=== PATIENT | female | born 1995 | race Caucasian/White ===

== ENCOUNTER 2022-09-11 12:31 | Emergency (ER) | payer OTHER, MEDICAID, SELFPAY ==
[2022-09-11 12:32] VITALS: BP 148/85; PULSE 78; RESP 16; TEMP 36.6; O2SAT 100; BMI 38.9
[2022-09-11 13:12] LABS: Bacteria 0 SEEN /hpf (None Seen); Mucous, Urine 0 SEEN /hpf (<or=2+); Red Blood Cells-Urine 0 SEEN /hpf (0-5); Squamous Epithelial Cells - UA 0 SEEN /hpf (5-10); White Blood Cells 0 SEEN /hpf (0-5)
[2022-09-11 13:14] LABS: Color, Urine Yellow (Yellow); Glucose, Dipstick Normal (Normal); Ketone-Dipstick Negative (Negative); Leukocyte Esterase-Dipstick Negative /ul (Negative); Nitrite-Dipstick Negative (Negative); Occult Blood-Urine Negative /ul (Negative); Protein-Dipstick Negative (Negative); Specific Gravity, Urine 1.015 (1.002-1.030); Urine Bilirubin Dipstick Negative (Negative); Urine Clarity Cloudy (Clear); Urine Urobilinogen Normal (Normal)
--- NOTE | 2022-09-11 13:15 | ED.VIS.FEGU ---
HPI <IRAM Fallon - Last Filed: 09/11/22 13:54> HPI - Female History of Present Illness Chief Complaint: Narrative Narrative: Today with lower back pain that she has had since last night. She is G1, P0 and is 18 weeks along. She has had care up to this point and has not had any difficulties with her . She denies any injury to her back, heavy lifting, fever, abdominal pain, urinary symptoms, pelvic cramping, and vaginal bleeding. She denies any radiation of pain/numbness into her extremities, saddle paresthesia, bowel bladder incontinence. PFSH <IRAM Fallon - Last Filed: 09/11/22 13:54> [facility] Home Medications amlodipine 10 mg tablet 10 mg PO DAILY 09/11/22 [History Last Taken Unknown] metoprolol succinate 25 mg tablet,extended release 24 hr 25 mg PO DAILY 09/11/22 [History Last Taken Unknown] Allergy/AdvReac Type Severity Reaction Status Date / Time amoxicillin Allergy Hives Verified 09/11/22 12:32 Penicillins [PCN] Allergy Hives Verified 09/11/22 12:32 Family History Other Breast cancer Diabetes Heart disease Hypertension Social History Smoking Status: Never smoker ROS <IRAM Fallon - Last Filed: 09/11/22 13:54> ROS ED Constitutional Constitutional ED: Denies chills, fever(s) or sweats Cardiovascular Cardiovascular: Denies chest pain or palpitations Respiratory/Chest Respiratory/Chest: Denies cough or dyspnea Gastrointestinal Gastrointestinal: Denies abdominal pain, nausea or vomiting Genitourinary Genitourinary ED: Denies dysuria, hematuria or urinary urgency Musculoskeletal Musculoskeletal: Reports back pain; Denies neck pain Integumentary Denies abscess, Abrasions or rash Neurologic Neurologic: Denies paresthesias or weakness Psychiatric Psychiatric: Denies anxiety, depression, suicidal ideation or suicidal thoughts EXAM <IRAM Fallon - Last Filed: 09/11/22 13:54> Physical Exam Const Vital Signs: 09/11/22 12:32 09/11/22 13:32 Temperature 97.8 F Temperature Source Temporal Pulse Rate 78 Respiratory Rate 16 Blood Pressure 148/85 H Blood Pressure Mean 106 Pulse Ox 100 99 Oxygen Delivery Method Room Air Positive well nourished, well developed and no apparent distress General Appearance ED: well developed HEENT Reports normocephalic and head/scalp atraumatic Mouth ED: Yes moist mucous membranes normal Eyes PERRL and EOMs intact bilaterally Neck full ROM and supple Chest Wall inspection of chest normal Resp normal respiratory effort and clear to auscultation bilaterally Cardio regular rate and regular rhythm GI soft to palpation, non-tender, non-distended and no masses Back/Spine normal ROM and normal to inspection Back/Spine Narrative: Lumbar paraspinal tenderness bilaterally. No midline tenderness, no step-off Cervical Spine: Negative for cervical spine tenderness Thoracic Spine / Upper Back: Negative for thoracic spinal tenderness Lumbar Spine / Lower Back: Negative for lumbar spinal tenderness Extremity normal to inspection and full ROM Neuro oriented x3, CN's II-XII intact bilaterally, moves all extremities, no focal motor deficits and no sensory deficits noted Sensorium / Orientation: awake and alert Psych mental status grossly normal and thought process normal Skin no rashes or lesions noted and no wounds <Dr. Brad Ko MD - Last Filed: 09/11/22 13:35> Physical Exam Const Vital Signs: 09/11/22 12:32 09/11/22 13:32 Temperature 97.8 F Temperature Source Temporal Pulse Rate 78 Respiratory Rate 16 Blood Pressure 148/85 H Blood Pressure Mean 106 Pulse Ox 100 99 Oxygen Delivery Method Room Air MDM <IRAM Fallon - Last Filed: 09/11/22 13:54> [facility] Narrative Medical decision making narrative: Patient presenting with lower back pain that she has had since last night. She is well-appearing and in no acute distress. She has had no injury to her back. Negative straight leg test, no midline tenderness, exam is consistent with lumbar paraspinal tenderness. UA obtained and is negative for any infection. Patient has been taking Tylenol for her pain, she can continue this. She will be discharged home in stable condition and is comfortable with plan. I have personally performed a face to face assessment of the patient and have reviewed the STACEY Note. I performed a substantive portion of the visit including all aspects of the following. My lucas findings include: History is 26-year-old female 18 weeks . Normal so far. No significant nausea or vomiting. No bleeding or discharge. No dysuria. Yesterday started having lower back pain. No falls or trauma. No weakness or numbness. No radiation to her legs. No fever. No back history of surgery. Exam is [[id number] female no acute distress. Vital signs are stable afebrile. H EENT exam unremarkable. Lungs clear to auscultation. Heart regular rhythm. Abdomen soft nontender. Normal bowel sounds no peritoneal signs. Moving all 4 extremities. Neurovascular intact. Normal motor strength and sensation. Able to stand. Back minimal reproducible lower lumbar and paralumbar tenderness. No SI joint tenderness. No radiation to her legs. Negative straight leg raise. Both lower extremities have normal strength and sensation. No cauda equina. ] Medical Decision Making [exam consistent with musculoskeletal back pain. UA was done and is negative. She will be discharged home. Tylenol for pain.] Other additions or changes: [None] Lab Data Attestation: I reviewed the patient's lab results. Labs: Laboratory Results - last 24 hr 09/11/22 13:06 Urine Color Yellow Urine Clarity Cloudy Urine pH 7.0 Ur Specific [place] 1.015 Urine Protein Negative Urine Glucose (UA) Normal Urine Ketones Negative Urine Occult Blood Negative Urine Nitrite Negative Urine Bilirubin Negative Urine Urobilinogen Normal Ur Leukocyte Esterase Negative Urine RBC 0 SEEN Urine WBC 0 SEEN Ur Squamous Epith Cells 0 SEEN Amorphous Sediment 1+ Urine Bacteria 0 SEEN Urine Mucus 0 SEEN <Dr. Brad Ko MD - Last Filed: 09/11/22 13:35> [facility] Narrative Medical decision making narrative: I have personally performed a face to face assessment of the patient and have reviewed the STACEY Note. I performed a substantive portion of the visit including all aspects of the following. My lucas findings include: History is 26-year-old female 18 weeks . Normal so far. No significant nausea or vomiting. No bleeding or discharge. No dysuria. Yesterday started having lower back pain. No falls or trauma. No weakness or numbness. No radiation to her legs. No fever. No back history of surgery. Exam is [[id number] female no acute distress. Vital signs are stable afebrile. H EENT exam unremarkable. Lungs clear to auscultation. Heart regular rhythm. Abdomen soft nontender. Normal bowel sounds no peritoneal signs. Moving all 4 extremities. Neurovascular intact. Normal motor strength and sensation. Able to stand. Back minimal reproducible lower lumbar and paralumbar tenderness. No SI joint tenderness. No radiation to her legs. Negative straight leg raise. Both lower extremities have normal strength and sensation. No cauda equina. ] Medical Decision Making [exam consistent with musculoskeletal back pain. UA was done and is negative. She will be discharged home. Tylenol for pain.] Other additions or changes: [None] Lab Data Labs: Laboratory Results - last 24 hr 09/11/22 13:06 Urine Color Yellow Urine Clarity Cloudy Urine pH 7.0 Ur Specific [place] 1.015 Urine Protein Negative Urine Glucose (UA) Normal Urine Ketones Negative Urine Occult Blood Negative Urine Nitrite Negative Urine Bilirubin Negative Urine Urobilinogen Normal Ur Leukocyte Esterase Negative Urine RBC 0 SEEN Urine WBC 0 SEEN Ur Squamous Epith Cells 0 SEEN Amorphous Sediment 1+ Urine Bacteria 0 SEEN Urine Mucus 0 SEEN Discharge Plan Triage Chief Complaint: ED Midlevel Provider: Rhona Dee ED Provider: Brad Ko Dx/Rx/DC Orders Clinical Impression: , Lower back pain Prescriptions: No Action amlodipine 10 mg tablet 10 mg PO DAILY Label Comments: TAKE 1 TABLET BY MOUTH ONCE DAILY. FOR HYPERTENSION metoprolol succinate 25 mg tablet extended release 24 hr 25 mg PO DAILY Label Comments: TAKE 1 TABLET BY MOUTH EVERY DAY Stand Alone Forms: ED Work / School Excuse Primary Care Provider: Macarena Calles Referrals: Macarena Calles P[facility] [Primary Care Provider] - 5-7 Days Activity Restrictions/Additional Instructions: Follow-up with your OB as needed. Return for any worsening of symptoms Disposition Disposition: Home, Self Care Discharge Date/Time: 09/11/22 13:41
[2022-09-11 13:19] LABS: Amorphous Sediment 1+
[2022-09-11 13:32] VITALS: O2SAT 99
== END 2022-09-11 13:41 | disposition home or self-care (01) ==
PROVIDERS: Physician Assistant; Emergency Provider Emergency Medicine; PCP Family Medicine; Visit Provider Emergency Medicine
DX: O99.891 Other specified diseases and conditions complicating pregnancy (principal); M54.50 Low back pain, unspecified; Z3A.18 18 weeks gestation of pregnancy
CPT/HCPCS: 81001; 99282

== ENCOUNTER 2023-01-24 01:33 | Inpatient (IN) | payer OTHER, SELFPAY ==
[2023-01-23 23:42] VITALS: BMI 42.2
[2023-01-23 23:48] VITALS: BP 149/89; PULSE 91; TEMP 36.7
[2023-01-24] VITALS (41 sets, daily range): BP systolic 131–169; BP diastolic 76–96; PULSE 69–86; RESP 15–16; TEMP 36.4–37.1; O2SAT 84–100
[2023-01-24 00:43] LABS: Hematocrit 35.2 % (37-47); Hemoglobin 10.9 g/dL (12.0-15.0); Mean Corpuscular Hgb 27.9 pg (27.0-32.0); Mean Corpuscular Volume 90.3 fL (81-99); Mean Platelet Vol. 10.3 fl (6.2-12.0); Platelet Count 196 K/mm3 (150-450); RBC Distribution Width CV 13.6 % (11.6-14.6); RBC Distribution Width SD 44.5 fl (35.1-43.9); White Blood Count 12.4 K/mm3 (4.4-11.0)
[2023-01-24] MEDS: Acetaminophen 325 MG Tablet 650 MG PO (00:50)
[2023-01-24 00:59] LABS: Protein, Urine (Random) 57.2 mg/dL (<11.9); Protein:Creat Ratio 308 mg/g CRE (0-200)
[2023-01-24 01:12] LABS: AST(SGOT) 22 U/L (15-37); Alanine Aminotransfer ALT/SGPT 17 U/L (13-56); Creatinine, Serum 0.57 mg/dL (0.55-1.02); EST Glomerular Filtration Rate 134 mL/min (>60); Est Glom Filt Rate - Afr Amer 162 mL/min (>60); Estimated Creatinine Clearance 137.56 ml/min; Uric Acid 4.7 mg/dL (2.6-6.0)
--- NOTE | 2023-01-24 01:51 | EKG12_ITS ---
Test Reason : CHEST TIGHTNESS Blood Pressure : / mmHG Vent. Rate : 090 BPM Atrial Rate : 090 BPM P-R Int : 162 ms QRS Dur : 082 ms QT Int : 372 ms P-R-T Axes : 034 -05 026 degrees QTc Int : 455 ms Normal sinus rhythm Normal ECG No previous ECGs available Confirmed by GABRIELLA PINEDA ([id number]), visual effects editor SONU CHOUDUHRY ([id number]) on 02/02/2023 9:42:43 AM Referred By: Missy Hastings Confirmed By:GABRIELLA PINEDA
--- NOTE | 2023-01-24 01:51 | RAD_ITS ---
EXAM: XR CHEST, 1 VIEW CLINICAL INDICATION: chest tightness, cough chest tightness, cough TECHNIQUE: Frontal view of the chest. COMPARISON: No relevant prior studies available. FINDINGS: LUNGS AND PLEURAL SPACES: Lungs are mildly underexpanded. There is no demonstrated pulmonary infiltrate. No pneumothorax. No effusion. HEART: Unremarkable. Cardiac silhouette not enlarged. MEDIASTINUM: Central airways and mediastinal contour are unremarkable. BONES/JOINTS: Unremarkable. SOFT TISSUES: Unremarkable. RAD/Chest 1 View (Portable) IMPRESSION: No acute findings in the chest. Electronically Signed: Ga Hall MD at 3:09 EDT Reading Location ID and State: [facility] / [place] , Service support ,
[2023-01-24] MEDS: Lactated Ringers 1,000 ML 50 ML IV ×2 (02:07→23:47)
[2023-01-24 02:32] LABS: Syphilis Antibodies Non-reactive
--- NOTE | 2023-01-24 02:44 | PCM.HP.OB ---
HPI - General General Date of Admission: 01/24/23 Date of Service: 01/24/23 Chief Complaint: ZAMORA HPI Narrative JOSE REBOLLEDO, is a 27 F 0 at 37 weeks and 0 days with history of chronic hypertension on blood pressure medication who presents with a new onset headache. She rates the headache 4 out of 10 and it is occipital in location. ZAMORA unchanged with Tylenol but she reports it as mild, and reports a h/o ZAMORA's. She denies visual changes, right upper quadrant pain, nausea, vomiting, malaise. She reports she checked her blood pressure at work and it was elevated in the 160s. The elevated blood pressure at work and the headache is what prompted her to present to labor and delivery. No contractions, bleeding, leaking of fluid. Good movement. She also reports over the last several weeks that she has had chest tightness and a cough that is intermittent. Attributes this to history of reactive airway disease. She denies any chest tightness or cough at this time. She reports some shortness of breath on exertion. Denies orthopnea. Has noticed lower extremity swelling. PFSH PFSH Home Medications amlodipine 10 mg tablet 10 mg PO DAILY 09/11/22 [History Last Taken 01/23/23] aspirin 81 mg capsule 162 mg PO DAILY 01/23/23 [History Last Taken 01/23/23] vit no.95-ferrous fumarate 28 mg-folic acid 800 mcg tablet () 1 tab PO DAILY 01/23/23 [History Last Taken 01/23/23] Allergy/AdvReac Type Severity Reaction Status Date / Time amoxicillin Allergy Hives Verified 09/11/22 12:32 Penicillins [PCN] Allergy Hives Verified 09/11/22 12:32 Family History Other Breast cancer Diabetes Heart disease Hypertension Social History Smoking Status: Never smoker NST FHR Rate Baby A Baseline: 140 Variability:: Moderate Accelerations:: 15 x 15 Decelerations:: None FHR Category:: Category I Uterine Activity:: Irregular ctx's Vital Signs Vital Signs Vital Signs: 01/23/23 23:48 01/23/23 23:48 01/24/23 00:03 Temperature Temperature Source Pulse Rate 91 Blood Pressure 149/89 H 149/85 H BP Systolic 149 149 BP Diastolic 89 85 01/24/23 00:03 01/24/23 00:18 01/24/23 00:18 Temperature Temperature Source Pulse Rate 78 80 Blood Pressure 140/82 H BP Systolic 140 BP Diastolic 82 01/24/23 00:33 01/24/23 00:33 01/23/23 23:48 Temperature Temperature Source Temporal Pulse Rate 81 Blood Pressure 145/88 H BP Systolic 145 BP Diastolic 88 01/23/23 23:48 01/24/23 00:48 01/24/23 00:48 Temperature 98.1 F Temperature Source Pulse Rate 78 Blood Pressure 143/90 H BP Systolic 143 BP Diastolic 90 01/24/23 01:03 01/24/23 01:03 01/24/23 01:19 Temperature Temperature Source Pulse Rate 80 Blood Pressure 133/96 H 147/86 H BP Systolic 133 147 BP Diastolic 96 86 01/24/23 01:19 01/24/23 01:35 01/24/23 01:35 Temperature Temperature Source Pulse Rate 78 75 Blood Pressure 150/83 H BP Systolic 150 BP Diastolic 83 Weight Weight: 261 lb 7.492 oz Body Mass Index (BMI) 42.2 Physical Exam Const alert and no apparent distress General Appearance: comfortable HEENT normocephalic Resp normal respiratory effort, normal air movement and clear to auscultation bilaterally Effort and Inspection: able to speak in complete sentences Auscultation: clear to auscultation bilaterally; Negative for crackles or wheezes Cardio regular rate and regular rhythm GI soft to palpation and non-tender Extremity Extremity Narrative: 1+ pitting edema bilaterally Neuro Neuro Narrative: No hyper reflexia Labs Labs Labs: Blood Type Pending Antibody Screen NEGATIVE Hct 35.2 % (37-47) L Hgb 10.9 g/dL (12.0-15.0) L Syphilis Total Ab Non-reactive Assessment & Plan (1) 37 weeks gestation of : PLAN: - Admit for induction of labor and routine intrapartum care - Cvx closed. Will start with Cytotec - Epidural for pain control - GBS negative - Expected EFW < 4500 g and pelvis adequate - Anticipate vaginal delivery (2) Chronic hypertension: PLAN: - Cont Amlodipine - BP's mild range - P/c ratio elevated (3) Chronic hypertension with superimposed preeclampsia: PLAN: - BP's mild range but higher than what they typically are in office - P/c ratio elevated - ZAMORA mild. Discussed with pt if worsened ZAMORA or severe range BP's will start mag gtt for seizure prophylaxis (4) Obesity affecting : (5) History of palpitations: PLAN: - Pt had EKG with PCP prior to showing possible atrial enlargement - MFM consultation in the and Echo was ordered. Echo completed and normal - EKG on admission normal sinus rhythm - CXR given chest tightness and cough
[2023-01-24] MEDS: miSOPROStol 25 MCG TABLET PO ×3 (04:40→12:55)
[2023-01-24] MEDS: amLODIPine 10 MG Tablet PO (15:11)
--- NOTE | 2023-01-24 16:19 | PCM.PN.OB ---
Subjective Subjective Pt is doing well. She reports an off-and-on mild headache. The headache is improved from admission. The headache is still in the occipital location and possibly a tension headache. No visual changes. No right upper quadrant pain, nausea, vomiting. She is feeling some cramping from the Cytotec. Objective Data Objective Data Vital Signs: Vital Signs Temp Pulse BP Pulse Ox 97.6 F L 76 134/81 H 99 01/24/23 12:57 01/24/23 16:02 01/24/23 16:02 01/24/23 06:02 Weight: 261 lb 7.492 oz Body Mass Index (BMI) 42.2 Intake & Output: Intake and Output for Last 24 Hours 01/22/23 01/23/23 01/24/23 23:59 23:59 23:59 Intake Total 6.67 / 6.67 Output Total 400 / 400 Balance -393.33 / -393.33 Lab / Micro Data 01/24/23 00:30 01/24/23 00:30 Labs: Laboratory Results - last 24 hr 01/24/23 00:30: WBC 12.4 H, RBC 3.90 L, Hgb 10.9 L, Hct 35.2 L, MCV 90.3, MCH 27.9, MCHC 31.0 L, RDW Std Deviation 44.5 H, RDW Coeff of [place] 13.6, Plt Count 196, MPV 10.3, Creatinine 0.57, Estim Creat Clear Calc 137.56, Est GFR (MDRD) Af Amer 162, Est GFR (MDRD) Non-Af 134, Uric Acid 4.7, AST 22, ALT 17, U Random Total Protein 57.2 H, Urine Creatinine 186.00, Protein/Creatinin Ratio 308 H, Syphilis Total Ab Non-reactive, Antibody Screen NEGATIVE Radiography Diagnostic Testing: Radiology Impression Chest X-Ray 01/24/23 01:51 IMPRESSION: No acute findings in the chest. Electronically Signed: Ga Hall MD at 3:09 EDT Reading Location ID and State: [facility] / [place] , Service support , Assessment & Plan (1) 37 weeks gestation of : PLAN: Patient has received 2 doses of Cytotec. Cervix 1/thick/-3, vertex. Intracervical Mejia placed in usual fashion and balloon filled with 30 cc of saline. Patient tolerated procedure well. Category [address] a third dose of Cytotec. Once intracervical Mejia is out, and we are 4 hours from Cytotec, to start Pitocin per protocol. Pressures remain normal to mild range. Patient's headache has improved. No indication for magnesium for seizure prophylaxis at this time. Continue to closely monitor. (2) History of palpitations: (3) Obesity affecting : (4) Chronic hypertension with superimposed preeclampsia:
[2023-01-24] MEDS: 0.9% Normal Saline Single 100 ML IV.SOLN. INTRA-UTER (16:26)
--- NOTE | 2023-01-24 17:27 | PCM.PN.BLA ---
Progress Note Pt feeling ctx's. At bedside with RN to check cervix. Assessment & Plan Assessment/Plan (1) History of palpitations: (2) Obesity affecting : (3) Chronic hypertension with superimposed preeclampsia: (4) 37 weeks gestation of : PLAN: Intracervical serna bulb out. Cvx /-2, vertex. Start pitocin per protocol. Pt plans on epidural.
[2023-01-24] MEDS: Oxytocin 15 Units/NS 250ml 15 UNITS/250 ML IV.SOLN 2 UNITS IV (17:39)
--- NOTE | 2023-01-24 19:48 | NURSING ---
MOB and FOB verbalized they would like baby to receive the hepatitis b vaccine.
--- NOTE | 2023-01-24 21:44 | PCM.PN.BLA ---
Progress Note At bedside to check on pt. Getting uncomfortable with ctx's. Assessment & Plan Assessment/Plan (1) History of palpitations: (2) Obesity affecting : (3) Chronic hypertension with superimposed preeclampsia: (4) 37 weeks gestation of : PLAN: Plan Cvx /-1, vertex and head well applied. AROM performed in usual fashion with return of moderate clear fluid. Category 1 tracing. Cont pit gtt. ZAMORA has improved. No pre e symptoms at this time. BP's remain normal to mild.
[2023-01-24] MEDS: Magnesium Sulfate 4gm/100mL 4 GM/100 ML IV.SOLN. IV (22:57)
[2023-01-24] MEDS: Magnesium Sulfate 20 GM/500 ML BAG IV (23:17)
[2023-01-24] MEDS: LACTATED RINGERS 500 ML 999 ML IV (23:58)
[2023-01-25] VITALS (87 sets, daily range): BP systolic 123–166; BP diastolic 66–98; PULSE 73–245; RESP 14–16; TEMP 36.4–37.5; O2SAT 74–100
[2023-01-25] MEDS: fentaNYL-bupivacaine (epidural) 100 ML BAG EPIDURAL ×4 (00:25→14:43)
--- NOTE | 2023-01-25 00:35 | NURSING ---
Please look at QS Charting for blood pressure for magnesium checks
--- NOTE | 2023-01-25 02:18 | NURSING ---
see QS for vital signs
--- NOTE | 2023-01-25 03:17 | NURSING ---
see QS for vital signs
--- NOTE | 2023-01-25 04:04 | NURSING ---
see QS for vitals
--- NOTE | 2023-01-25 06:00 | NURSING ---
see QS for vitals
--- NOTE | 2023-01-25 07:06 | NURSING ---
see QS for vitals
[2023-01-25] MEDS: Acetaminophen 500 MG Tablet PO (07:56)
--- NOTE | 2023-01-25 08:33 | PCM.PN.OB ---
Subjective Subjective Patient seen at bedside. Comfortable with epidural. Currently has headache. Objective Data Objective Data Vital Signs: Vital Signs Temp Pulse Resp BP Pulse Ox O2 Del Method 98.1 F 88 16 151/87 H 99 Room Air 01/25/23 08:00 01/25/23 08:00 01/25/23 08:00 01/25/23 07:58 01/25/23 07:03 01/25/23 08:00 Oxygen Delivery Method Room Air Weight: 261 lb 7.492 oz Body Mass Index (BMI) 42.2 Intake & Output: Intake and Output for Last 24 Hours 01/23/23 01/24/23 01/25/23 23:59 23:59 23:59 Intake Total 1079.27 / 1079.27 804.63 / 804.63 Output Total 725 / 725 969 / 969 Balance 354.27 / 354.27 -164.37 / -164.37 Lab / Micro Data 01/24/23 00:30 01/24/23 00:30 ROS Eyes Eyes: Denies blurry vision, change in vision or spots in vision ENT HEENT: Reports headache(s); Denies dizziness Cardiovascular Cardiovascular: Denies abdominal pain, chest pain or dyspnea Respiratory/Chest Respiratory/Chest: Denies cough, dyspnea, shortness of breath at rest or shortness of breath with exertion Gastrointestinal Gastrointestinal: Denies abdominal pain, diarrhea or vomiting Genitourinary Genitourinary: Denies change in urinary stream, difficulty urinating or dysuria Musculoskeletal Musculoskeletal: Reports none Integumentary Integumentary: Denies rash Neurologic Neurologic: Denies dizziness, headache(s), memory loss or weakness Physical Exam Narrative Dressing is dry and intact Const alert and no apparent distress General Appearance: cooperative and comfortable Exam Limitations: no limitations HEENT normocephalic Eyes General Eye: normal appearance of both eyes Neck full ROM General: normal visual inspection Chest Chest: symmetrical chest wall rise Resp normal respiratory effort and normal air movement Effort and Inspection: symmetric chest movement Auscultation: clear to auscultation bilaterally Cardio regular rate and regular rhythm GI normal to inspection, nondistended, normoactive bowel sounds Back/Spine normal ROM Extremity full ROM and no calf tenderness General Extremity: normal exam except as noted Skin no rashes or lesions noted Neuro CN's II-XII intact bilaterally Psych mental status grossly normal Assessment & Plan (1) History of palpitations: (2) Obesity affecting : (3) Chronic hypertension with superimposed preeclampsia: (4) Chronic hypertension: (5) Asthma: COMMENT: reactive airway disorder PLAN: Plan CE- /-1 IUPC and FSE placed without difficulty Cat. 2 tracing with early decelerations- overall reassuring Magnesium Sulfide at 2 gm/hr- continue present management Last BP- 151/87 Dr. Issa updated and is assuming management of patient
[2023-01-25] MEDS: Magnesium Sulfate 20 GM/500 ML BAG IV ×2 (09:18→19:17)
[2023-01-25] MEDS: Oxytocin 15 Units/NS 250ml 15 UNITS/250 ML IV.SOLN 20 UNITS IV (12:15)
[2023-01-25] MEDS: Ondansetron 4 MG/2 ML Vial IV (13:51)
[2023-01-25] MEDS: Oxytocin 15 Units/NS 250ml 15 UNITS/250 ML IV.SOLN 83 UNITS IV (16:17)
[2023-01-25] MEDS: miSOPROStol 200 MCG Tablet 1000 MCG RC (16:21)
[2023-01-25] MEDS: Methylergonovine 0.2 MG/ML Ampul IM (16:29)
[2023-01-25] MEDS: HYDROmorphone 1 MG/ML Syringe IV (16:30)
[2023-01-25] MEDS: Carboprost Tromethamine 250 MCG/ML Ampul IM (16:47)
--- NOTE | 2023-01-25 16:51 | EX.PCM.OBRPT ---
Assessment & Plan (1) 37 weeks gestation of : (2) (spontaneous vaginal delivery): (3) Atony of uterus without hemorrhage, delivered: (4) Chronic hypertension with superimposed preeclampsia: Maternal Data Information Final SUSHMA: 02/14/23 Gestational age: 37 1/7 Vaginal Delivery Maternal Presentation Maternal Presentation: Medically Indicated Induction Type of Induction: Pitocin and Mejia Bulb Medical Reason for Induction: Preeclampsia, eclampsia Operative Information Date of Procedure: 01/25/23 Pre-Operative Diagnosis: labor Post-Operative Diagnosis: same Surgery / Procedure Performed: Spontaneous Vaginal Delivery Type of Anesthesia: None Special Medications: dilauded IVx1 for pain control Drain: Mejia to straight drain Estimated Blood Loss: 800 Time of Delivery: 16:14 Findings Description of Procedure: A vigorous [female] was delivered [HANK] over an intact perineum. The remainder the was delivered with maternal pushing and gentle traction only in less than 15 seconds. The Pitocin infusion was initiated for active management of the third stage. The cord was clamped and cut after cord pulsations ceased. The was attended to by the waiting nursing staff. The placenta was delivered spontaneously and intact. The cervix and vagina were intact. It was immediately noted that there was uterine atony. Fundal massage was given and an expiration of the uterus was performed. A brief ultrasound was done to confirm no retained intrauterine products. Patient was given IV bolus Pitocin and Hemabate IM x1. I continued fundal massage and she continued to bleed. We asked for the hemorrhage cart and a second IV line to be initiated. I then asked for Cytotec and 1000 mcg was placed rectally by me. I continued fundal massage. The uterus was still somewhat boggy but shrinking down. She was then given Methergine IM x1 for the atony, followed by 1 mg of Dilaudid IV for pain control. The first-degree vaginal laceration was oversewn with a 3-0 Vicryl repeat suture in a single [id number] fashion. Sponge and needle counts were correct. A vaginal sweep was completed by me. Presentation: HANK Amniotic Membrane Rupture Type: Artificial Amniotic Fluid Description: Clear Placental Delivery Description: Spontaneous Placenta Disposition: [facility] Specimen(s) Removed: placenta sent to pathology Cord Vessel Description: 3 Vessels Cord Entanglement: None Infant A Gender: Female (Rsisa) (1 minute): 7 (5 minute): 9 Delayed Cord Clamping: Yes Post Vaginal Delivery Medications Given After Delivery: IV Pitocin, IM Methergin, IM Hemabate and - (Cytotec 1000 mg rectal) Episiotomy Description: None Laceration: 1st degree (vaginal) Complication Complications: None
[2023-01-25 16:52] LABS: Hematocrit 40.2 % (37-47); Hemoglobin 12.7 g/dL (12.0-15.0); Mean Corp Hgb Conc 31.6 g/dL (32-36); Mean Corpuscular Hgb 28.4 pg (27.0-32.0); Mean Corpuscular Volume 89.9 fL (81-99); Mean Platelet Vol. 10.4 fl (6.2-12.0); Platelet Count 212 K/mm3 (150-450); RBC Distribution Width CV 13.7 % (11.6-14.6); RBC Distribution Width SD 44.3 fl (35.1-43.9); Red Blood Count 4.47 M/mm3 (4.2-5.4); White Blood Count 25.3 K/mm3 (4.4-11.0)
[2023-01-25 16:56] LABS: Prothrombin Time (Protime)PT. 13.5 SECONDS (11.7-14.9)
[2023-01-25 16:57] LABS: Partial Thromboplast Time 30.2 Seconds (24.1-36.2)
[2023-01-25] MEDS: Cefazolin 2 GM in 0.9% Normal Saline 100 ML IV (17:09)
[2023-01-25] MEDS: amLODIPine 10 MG Tablet PO (17:45)
[2023-01-25] MEDS: Ibuprofen 600 MG Tablet PO (21:23)
[2023-01-26] VITALS (38 sets, daily range): BP systolic 119–143; BP diastolic 59–96; PULSE 65–121; RESP 14–16; TEMP 35.9–37.2; O2SAT 83–100
[2023-01-26] MEDS: Acetaminophen 500 MG Tablet 1000 MG PO (00:55)
[2023-01-26] MEDS: 0.9% Saline Lock 10 ML Syringe IV ×2 (00:56→16:32)
[2023-01-26 05:10] LABS: Hematocrit 30.9 % (37-47); Hemoglobin 9.9 g/dL (12.0-15.0); Mean Corpuscular Hgb 28.5 pg (27.0-32.0); Mean Platelet Vol. 9.7 fl (6.2-12.0); Platelet Count 201 K/mm3 (150-450); RBC Distribution Width CV 13.9 % (11.6-14.6); RBC Distribution Width SD 45.1 fl (35.1-43.9); Red Blood Count 3.47 M/mm3 (4.2-5.4); White Blood Count 28.2 K/mm3 (4.4-11.0)
[2023-01-26] MEDS: Magnesium Sulfate 20 GM/500 ML BAG IV (05:31)
--- NOTE | 2023-01-26 08:28 | PN_ITS ---
Subjective Subjective patient seen at bedside, doing well. Patient reports good pain control. lochia mild. denies ZAMORA, visual changes. Pt reports no dizziness or CP. Objective Data Objective Data Vital Signs: Vital Signs Temp Pulse Resp BP Pulse Ox O2 Del Method 97.4 F L 83 16 132/77 H 86 Room Air 01/26/23 07:30 01/26/23 07:34 01/26/23 07:30 01/26/23 07:34 01/26/23 07:34 01/26/23 07:30 Oxygen Delivery Method Room Air Weight: 118.6 kg Body Mass Index (BMI) 42.2 Intake & Output: Intake and Output for Last 24 Hours 01/24/23 01/25/23 01/26/23 23:59 23:59 23:59 Intake Total 1079.27 / 1079.27 3557.91 / 3557.91 720 / 720 Output Total 725 / 725 2839 / 2839 930 / 930 Balance 354.27 / 354.27 718.91 / 718.91 -210 / -210 Lab / Micro Data 01/26/23 05:05 01/24/23 00:30 Labs: Laboratory Results - last 24 hr 01/25/23 16:30: WBC 25.3 H, RBC 4.47, Hgb 12.7, Hct 40.2, MCV 89.9, MCH 28.4, MCHC 31.6 L, RDW Std Deviation 44.3 H, RDW Coeff of Zenon 13.7, Plt Count 212, MPV 10.4, PT 13.5, INR 1.0, APTT 30.2 01/26/23 05:05: WBC 28.2 H, RBC 3.47 L, Hgb 9.9 L, Hct 30.9 L, MCV 89.0, MCH 28 .5, MCHC 32.0, RDW Std Deviation 45.1 H, RDW Coeff of Zenon 13.9, Plt Count 201, MPV 9.7 Physical Exam Narrative Abd: fundus firm. No RUQ pain. Const alert and oriented x3 General Appearance: cooperative HEENT normocephalic Neck General: normal visual inspection GI soft to palpation and non-distended GI Narrative: Fundus firm Extremity normal to inspection and no calf tenderness Skin no rashes or lesions noted Neuro oriented x3 and CN's II-XII intact bilaterally Psych mental status grossly normal Assessment & Plan Assessment/Plan (1) Atony of uterus without hemorrhage, delivered: (2) (spontaneous vaginal delivery): (3) Asthma: (4) Obesity affecting : (5) Chronic hypertension with superimposed preeclampsia: (6) Chronic hypertension: PLAN: Plan PPD# 1 , chtn w/ superimposed PRE E on magnesium, acute on chronic blood loss anemia continue Norvasc continue magnesium until 4pm (24hr pp) Dc serna- output adequate repeat cbc 6pm Routine care pain mgmt ambulation
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
[2023-01-26] MEDS: amLODIPine 10 MG Tablet PO (17:03)
[2023-01-26 18:42] LABS: Hematocrit 31.6 % (37-47); Hemoglobin 9.8 g/dL (12.0-15.0); Mean Corpuscular Hgb 27.8 pg (27.0-32.0); Mean Corpuscular Volume 89.8 fL (81-99); Mean Platelet Vol. 9.9 fl (6.2-12.0); Platelet Count 186 K/mm3 (150-450); RBC Distribution Width CV 14.2 % (11.6-14.6); RBC Distribution Width SD 46.3 fl (35.1-43.9); Red Blood Count 3.52 M/mm3 (4.2-5.4); White Blood Count 17.8 K/mm3 (4.4-11.0)
[2023-01-27 01:46] VITALS: BP 120/61; PULSE 93; RESP 18
--- NOTE | 2023-01-27 09:07 | PN.OBGYN_ITS ---
Subjective Subjective pain well controlled, average lochia, denies ZAMORA or visual changes. Objective Data Objective Data Vital Signs: Vital Signs Temp Pulse Resp BP Pulse Ox O2 Del Method 98.0 F 93 18 120/61 97 Room Air 01/26/23 22:15 01/27/23 01:46 01/27/23 01:46 01/27/23 01:46 01/26/23 22:15 01/27/23 01:46 Oxygen Delivery Method Room Air Weight: 118.6 kg Body Mass Index (BMI) 42.2 Intake & Output: Intake and Output for Last 24 Hours 01/25/23 01/26/23 01/27/23 23:59 23:59 23:59 Intake Total 3557.91 / 3557.91 1570 / 1570 Output Total 2839 / 2839 1735 / 1735 Balance 718.91 / 718.91 -165 / -165 Lab / Micro Data 01/26/23 18:24 01/24/23 00:30 Labs: Laboratory Results - last 24 hr 01/26/23 18:24: WBC 17.8 H, RBC 3.52 L, Hgb 9.8 L, Hct 31.6 L, MCV 89.8, MCH 27 .8, MCHC 31.0 L, RDW Std Deviation 46.3 H, RDW Coeff of Zenon 14.2, Plt Count 186, MPV 9.9 Physical Exam Narrative Edema 3+, no clonus, 2+ Dtrs Const alert and no apparent distress Narrative: Fundus firm, below umbilicus. Assessment & Plan (1) (spontaneous vaginal delivery): PLAN: day #2 status post vaginal delivery. Chronic hypertension with superimposed preeclampsia. Blood pressure stable. Discharged home with follow- up in our office within 2 days if is ready to go home today.
[2023-01-27 10:15] VITALS: BP 131/75; PULSE 80; PULSE 81; RESP 16; TEMP 36.9; O2SAT 99
[2023-01-27 11:54] LABS: Pathology Specimen OB SEE PATHOLOGY REPORT
[2023-01-27 14:30] VITALS: BP 117/64; PULSE 96; RESP 16; TEMP 37.4; O2SAT 98
[2023-01-27 14:38] VITALS: BP 117/64; PULSE 89
[2023-01-27] MEDS: Acetaminophen 500 MG Tablet 1000 MG PO (14:43)
[2023-01-27] MEDS: amLODIPine 10 MG Tablet PO (17:25)
[2023-01-27 20:26] VITALS: BP 141/84; PULSE 85; RESP 16; TEMP 36.9; O2SAT 98
[2023-01-27] MEDS: Ibuprofen 600 MG Tablet PO (23:13)
[2023-01-28 02:00] VITALS: BP 137/84; PULSE 82; RESP 16; TEMP 36.6; O2SAT 98
[2023-01-28 07:50] VITALS: BP 142/87; PULSE 77; RESP 18; TEMP 36.6; O2SAT 100
--- NOTE | 2023-01-28 08:32 | PCM.PN.OB ---
Subjective Subjective Denies headaches or blurry vision. She feels well. Objective Data Objective Data Vital Signs: Vital Signs Temp Pulse Resp BP Pulse Ox O2 Del Method 97.9 F 77 18 142/87 H 100 Room Air 01/28/23 07:50 01/28/23 07:50 01/28/23 07:50 01/28/23 07:50 01/28/23 07:50 01/28/23 07:50 Oxygen Delivery Method Room Air Weight: 261 lb 7.492 oz Body Mass Index (BMI) 42.2 Intake & Output: Intake and Output for Last 24 Hours 01/26/23 01/27/23 01/28/23 23:59 23:59 23:59 Intake Total 1570 / 1570 Output Total 1735 / 1735 Balance -165 / -165 Lab / Micro Data 01/26/23 18:24 01/24/23 00:30 Physical Exam Const alert, oriented x3 and no apparent distress HEENT normocephalic GI soft to palpation, non-tender and non-distended GI Narrative: fundus firm, mid & below umbilicus Extremity normal to inspection and no calf tenderness Assessment & Plan (1) Chronic hypertension with superimposed preeclampsia: COMMENT: PPD#3 (2) (spontaneous vaginal delivery): PLAN: Plan BP's overall well controlled. Will increase norvasc to 10mg bid. Patient will monitor BP at home & follow up in office Wednesday for a BP check. Reviewed preE & BP precautions. D/c home later today.
--- NOTE | 2023-01-28 08:35 | PCM.DC.SUM ---
Providers Date of Admission: 01/24/23 Date of Discharge: 01/28/23 Primary Care Physician: Macarena Calles PA-C Reason For Visit: VAG DELIVERY Diagnosis Discharge Diagnosis (1) Chronic hypertension with superimposed preeclampsia: Status: Acute Code(s): O11.9 - Pre-existing hypertension with pre-eclampsia, unspecified trimester (2) (spontaneous vaginal delivery): Status: Acute Code(s): O80 - Encounter for full-term uncomplicated delivery Plan BP's overall well controlled. Will increase norvasc to 10mg bid. Patient will monitor BP at home & follow up in office Wednesday for a BP check. Reviewed preE & BP precautions. D/c home later today. Medications at Discharge Home Medications vit no.95-ferrous fumarate 28 mg-folic acid 800 mcg tablet () 1 tab PO DAILY 01/23/23 acetaminophen 500 mg tablet 1,000 mg (2 x 500 mg) PO Q6H PRN PRN Pain 1-10 Or Fever #0 tabs 01/28/23 amlodipine 10 mg tablet (Norvasc) 10 mg PO BID #60 tabs 01/28/23 ibuprofen 600 mg tablet 600 mg PO Q6H PRN PRN Pain Score 1-3 #0 tabs 01/28/23 Hospital Course Operations section Summary of Care Provided Minutes Spent on Discharge: 15 Hospital Course: Patient admitted and proceeded to have - see delivery note. Blood pressure was well controlled at time of discharge. Weight / BMI Weight Weight: 261 lb 7.492 oz Body Mass Index (BMI) 42.2 ABG / Lab / Microbiology Data 01/26/23 18:24 01/24/23 00:30 D/C Instructions Discharge Diet: No restrictions Discharge Activity: May Shower May resume sexual activity in: 6 weeks Weight Bearing Status: Weight bearing as tolerated Call your doctor if your incision/area has: Continuous Slow Oozing, Sudden Increased Bleeding, Increased Pain/ Swelling, Increased Redness, Foul Smelling Discharge and Swelling at the incision site Call your doctor if you observe: Fever of 101 or Higher, Coldness, Increased Pain, Change in Color, Inability to urinate, Inability to have a bowel movement, Using more than 1 pad per hour, Shortness of breath, Dizziness, Fainting spells, Chest pain, Increased palpitations (irregular heartbeat), Calf discomfort and Uncontrolled pain Suture Line Care: Avoid Pulling/Pushing and Avoid Pinching/Bending Remove Dressing in: 1 week Cleanse incision/area with: Soap & Water Please Follow Up With: Marcie Issa MD When: Follow up in 2 and 6 weeks for visits. Meaningful Use Info Meaningful Use Diagnoses (Choose all that apply): None applicable Discharge Plan Admission Admit Date/Time: 01/24/23 01:33 Primary Reason for Your Visit: section Attending Provider: Marcie Issa Primary Care Provider: Macarena Calles Discharge Orders/Prescriptions Prescriptions: New acetaminophen 500 mg Tablet 1,000 mg PO Q6H PRN PRN (Reason: Pain 1-10 Or Fever) Qty: 0 0RF ibuprofen 600 mg Tablet 600 mg PO Q6H PRN PRN (Reason: Pain Score 1-3) Qty: 0 0RF amlodipine [Norvasc] 10 mg tablet 10 mg PO BID Qty: 60 0RF Continued PNV cmb#95-ferrous fumarate-FA [] 28 mg iron- 800 mcg tablet 1 tab PO DAILY Discontinued amlodipine 10 mg tablet 10 mg PO DAILY Patient Comments: TAKE 1 TABLET BY MOUTH ONCE DAILY. FOR HYPERTENSION aspirin 81 mg capsule 162 mg PO DAILY Referrals / Follow Up: Macarena Calles PA-C [Primary Care Provider] - Disposition Disposition (needs filled in before D/C Order can be placed): Home, Self Care
[2023-01-28] MEDS: amLODIPine 10 MG Tablet PO (09:05)
[2023-01-28] MEDS: Ibuprofen 600 MG Tablet PO (13:13)
[2023-01-28 13:30] VITALS: BP 139/86; PULSE 94; RESP 16; TEMP 36.9; O2SAT 96
== END 2023-01-28 15:29 | disposition home or self-care (01) | DRG 768 ==
LOC: WPOUT 01:38 → WP 01:38
PROVIDERS: Obstetrics & Gynecology; Admitting Provider Obstetrics & Gynecology; PCP Family Medicine; Referring Provider Obstetrics & Gynecology; Visit Provider Obstetrics & Gynecology
DX: O11.4 Pre-existing hypertension with pre-eclampsia, complicating childbirth (principal); Z37.0 Single live birth; D62 Acute posthemorrhagic anemia; J45.909 Unspecified asthma, uncomplicated; E66.9 Obesity, unspecified; O72.1 Other immediate postpartum hemorrhage; O99.52 Diseases of the respiratory system complicating childbirth; O90.81 Anemia of the puerperium; O99.214 Obesity complicating childbirth; O70.0 First degree perineal laceration during delivery; Z3A.37 37 weeks gestation of pregnancy; Z79.82 Long term (current) use of aspirin
CPT/HCPCS: 59025; 59050; 71045; 82565; 82570; 84156; 84450; 84460; 84550; 85027; 85610; 85730; 86780; 86850; 86900; 86901; 93005; 99221; J7120; A4216; G0378; J2405

== ENCOUNTER 2023-01-29 01:21 | Outpatient (CLI) | payer OTHER, SELFPAY ==
[2023-01-29] VITALS (14 sets, daily range): BP systolic 110–158; BP diastolic 55–85; PULSE 82–108; RESP 16; TEMP 37.5; O2SAT 99–100; BMI 38.6
--- NOTE | 2023-01-29 01:15 | ED.RN ---
cases discussed with OB charge. Decision made to transfer patient to OB department at this time for treatment
[2023-01-29] MEDS: Ibuprofen 600 MG Tablet PO (02:50)
[2023-01-29] MEDS: NIFEdipine 10 MG Capsule PO (02:50)
[2023-01-29 02:56] LABS: Hematocrit 29.6 % (37-47); Hemoglobin 9.1 g/dL (12.0-15.0); Mean Corp Hgb Conc 30.7 g/dL (32-36); Mean Corpuscular Hgb 28.3 pg (27.0-32.0); Mean Corpuscular Volume 91.9 fL (81-99); Mean Platelet Vol. 9.6 fl (6.2-12.0); Platelet Count 230 K/mm3 (150-450); RBC Distribution Width CV 13.6 % (11.6-14.6); RBC Distribution Width SD 45.6 fl (35.1-43.9); Red Blood Count 3.22 M/mm3 (4.2-5.4); White Blood Count 11.2 K/mm3 (4.4-11.0)
--- NOTE | 2023-01-29 03:07 | NURSING ---
Infant staying in room with pt during PP triage/readmission. Cuddles tag #[id number] placed on 's right ankle and activated. MCKENNA Stinson
[2023-01-29] MEDS: Acetaminophen 500 MG Tablet 1000 MG PO (03:26)
[2023-01-29] MEDS: NIFEdipine 30 MG Tablet PO (03:26)
[2023-01-29 03:41] LABS: AST(SGOT) 20 U/L (15-37); Alanine Aminotransfer ALT/SGPT 23 U/L (13-56); Creatinine, Serum 0.54 mg/dL (0.55-1.02); EST Glomerular Filtration Rate 142 mL/min (>60); Est Glom Filt Rate - Afr Amer 172 mL/min (>60); Uric Acid 5.3 mg/dL (2.6-6.0)
--- NOTE | 2023-01-29 07:51 | NURSING ---
Patient given verbal and written discharge instructions. Patient educated on PreE precautions and when to return for worsening symptoms. Instructed to burr picker new prescription Procardia XL and call office with an update at noon today. Denies questions or concerns. will be in to see her and then leaving unit for distribution sales representative appointment.
--- NOTE | 2023-02-13 09:38 | OB.TRI.NOTE ---
HPI - General HPI Narrative JOSE REBOLLEDO, is a 27 F who presents with headache, PFSH PFSH Medical History (Updated 02/13/23 @ 09:[address] Chencho Burroughs MD) Asthma Chronic hypertension Family history of malignant hyperthermia Headache History of palpitations Pre-eclampsia Superficial varicosities Uterine anomaly Home Medications vit no.95-ferrous fumarate 28 mg-folic acid 800 mcg tablet () 1 tab PO DAILY 01/23/23 [History Last Taken 01/23/23] acetaminophen 500 mg tablet 1,000 mg (2 x 500 mg) PO Q6H PRN PRN Pain 1-10 Or Fever #0 tabs 01/28/23 [Rx Last Taken 01/28/23 21:00] amlodipine 10 mg tablet (Norvasc) 10 mg PO BID #60 tabs 01/28/23 [Rx Last Taken 01/28/23 23:00] ibuprofen 600 mg tablet 600 mg PO Q6H PRN PRN Pain Score 1-3 #0 tabs 01/28/23 [Rx Last Taken 01/28/23 13:00] Allergy/AdvReac Type Severity Reaction Status Date / Time amoxicillin Allergy Hives Verified 01/29/23 01:51 Penicillins [PCN] Allergy Hives Verified 01/29/23 01:51 Family History Other Breast cancer Diabetes Heart disease Hypertension Social History Smoking Status: Never smoker History Elective abortions Hx Para 0 Spontaneous abortions Hx # Term Pregnancies Ectopic pregnancies Hx # Pregnancies Multiple births # of living children Assessment & Plan (1) Headache in : QUALIFIERS: Trimester: third trimester Qualified Code(s): O26.893 - Other specified related conditions, third trimester; R51.9 - Headache, unspecified PLAN: Plan Labs & evaluation for headache in .
== END 2023-01-29 07:58 | disposition home or self-care (01) ==
LOC: WPOUT 01:22 → WP 01:25 → WPOUT 01:30 → WP 01:31
PROVIDERS: PCP Family Medicine; Referring Provider Obstetrics & Gynecology; Visit Provider Obstetrics & Gynecology
DX: O99.893 Other specified diseases and conditions complicating puerperium (principal); R51.9 Headache, unspecified; O99.513 Diseases of the respiratory system complicating pregnancy, third trimester; J45.909 Unspecified asthma, uncomplicated; O14.93 Unspecified pre-eclampsia, third trimester
CPT/HCPCS: 36415; 82565; 84450; 84460; 84550; 85027

== ENCOUNTER 2023-03-25 09:12 | Day surgery (SDC) | payer OTHER, SELFPAY ==
--- NOTE | 2023-03-02 16:45 | PCM.HP.BLA ---
History and Physical Date of Admission: 03/25/23 HPI: The patient is a 27 year old female presenting for pre-operative visit. She is scheduled for laparoscopic bilateral salpingectomy, for sterilizationb on 03/25/23. Procedure discussed along with risks, benefits and complications. Other alternatives discussed for management. Consent form signed? Yes. ? ? PAST MEDICAL HISTORY PAST MEDICAL HISTORY Diagnosis Date ? Asthma ? ? Chlamydia ? ? depression /anxiety ? ? never diagnosed ? Hypertension ? ? Liver disease ? ? Migraine headache with aura ? ? Submucous uterine fibroid ? ? ultrasound 08/2019 ? Tachycardia ? ? ? PAST SURGICAL HISTORY PAST SURGICAL HISTORY Procedure Laterality Date ? NONE ? CURRENT MEDICATIONS Current Outpatient Medications Medication Sig Dispense Refill ? NIFEdipine ER (PROCARDIA XL) 30 mg 24 hr tablet Take 1 tablet by mouth twice daily. 60 tablet 1 ? Miscellaneous Medical Supply (BLOOD PRESSURE CUFF) 1 Each once daily. 1 Each 0 ? albuterol HFA (VENTOLIN HFA) 90 mcg/actuation inhaler Inhale 2 Puffs as instructed every 4 hours as needed for Wheezing/Shortness of Breath. 1 Inhaler 0 ? vit 22-qaxj-xzdfg-dha (PRENATE MINI, FERR ASP GLYCIN,) 18-1-350 mg cap Take 1 capsule by mouth once daily. (Patient not taking: Reported on 03/02/2023) 30 capsule 11 ? aspirin, enteric coated (ASPIRIN, ENTERIC COATED) 81 mg EC tablet Take 2 tablets by mouth once daily. (Patient not taking: Reported on 03/02/2023) 60 tablet 5 ? Current Facility-Administered Medications Medication Dose Route Frequency Provider Last Rate Last Admin ? perflutren lipid microspheres 1.3 mL in NaCl (PF) 0.9% 10 mL injection (DEFINITY) INTRAVENOUS DIRECTED PRN Gianni Dacosta MD ? sodium chloride 0.9 % (flush) 10 mL (BD POSIFLUSH) 10 mL INTRAVENOUS DIRECTED PRN Gianni Dacosta MD ? ? ALLERGIES: Amoxicillin and Penicillin V ? PERSONAL HISTORY: SOCIAL HISTORY Social History ? Tobacco Use ? Smoking status: Never ? Smokeless tobacco: Never Vaping Use ? Vaping Use: Never used Substance Use Topics ? Alcohol use: Not Currently ? ? Comment: rarely ? Drug use: Never ? FAMILY HISTORY: FAMILY HISTORY FAMILY HISTORY Problem Relation Age of Onset ? Hypertension Mother ? ? other (other) Mother ? ? palpitations, heart murmur ? Hypertension Father ? ? No Known Problems Sister ? ? Hypertension Sister ? ? Alcohol/Drug Brother ? ? No Known Problems Brother ? ? Heart Maternal Grandmother ? ? CHF ? Diabetes Maternal Grandmother ? ? Hypertension Maternal Grandmother ? ? Alcohol/Drug Maternal Grandfather ? ? Alcoholic ? Breast Cancer Paternal Grandmother ? ? Diabetes Paternal Grandmother ? ? No Known Problems Paternal Grandfather ? ? ? REVIEW OF SYMPTOMS: GENERAL: denies fevers or chills ENDOCRINOLOGY: has not been on steroids Cardiology : denies palpitations or chest pain Respiratory: denies SOB or cough Hematology: denies history of prolonged bleeding or easy bruising or VTE Allergy: Denies history of personal or family history of allergy to anesthesia ? PHYSICAL EXAMINATION: ? VITALS: Blood pressure 134/76, pulse 94, resp. rate 16, height 5' 6 (1.676 m), weight 228 lb (103.4 kg), last menstrual period 05/10/2022, currently . ? GENERAL: The patient is well nourished, well hydrated in no acute distress. , The patient is oriented to time, place, and person. NECK: Supple. No lynphadenopathy, normal thyroid, no thyromegaly. LUNGS: Clear to auscultation bilaterally. no wheezes, rhonchi or rales HEART: Regular rate and rhythm, Normal heart sounds, and No murmurs or gallops ? IMPRESSION: Sterilization request ? PLAN: The risks/benefits/alternatives and personal involved for the planned laparoscopic bilateral salpingectomy were reviewed with the patient. Her questions were answered to her satisfaction and she desires to proceed. Consent was signed. I reviewed with her postop instructions and expectations. ? ? I have reviewed and updated past medical and surgical history, medications and allergies Assessment & Plan Assessment/Plan (1) Consultation for sterilization:
--- NOTE | 2023-03-25 | FALS_PTH ---
PATIENT: JOSE REBOLLEDO LOC: [facility] [place] U#:[id number] AGE/SX: 27/F ROOM: RE03/25/[address]: Dr. Marcie Issa MD : [id number] BED: DIS: 03/25/2023 SPEC #: [id number] RECD: 03/25/23 14:09 STATUS: PATRICIA REAntoinette #: [id number] DANIELA: 03/25/23 00:[address]: Marcie Issa DEPT: SURGICAL PATHOLOGY RECD BY: Haroon Oh ENTERED: 03/26/23 10:15 SP TYPE: FALL TUBES OTHR DR: Macarena Calles PA-C Tissues: Fallopian tube Procedures: Surgery Specimen Level II HEADER OPERATION: Laparoscopic salpingectomy PRE-OP DIAGNOSIS: Sterilization TISSUE SUBMITTED: Bilateral fallopian tubes MICROSCOPIC DIAGNOSIS Bilateral fallopian tubes, salpingectomy: Bilateral fallopian tubes, no pathologic diagnosis. A paratubal cyst. JIN:dee 03/29/2023 MICROSCOPIC DESCRIPTION Slides are reviewed. GROSS DESCRIPTION Received in fixative is one container labeled with the patient's name and designated bilateral fallopian tubes. The specimen consists of two fallopian tubes with an average length of 6.5 cm and has an average diameter of 0.7 cm. Both fallopian tubes have normal fimbriated ends. One of the fallopian tubes the soft tissue adjacent to the fimbrial end contains a cyst measuring 0.8 cm and containing clear fluid. No mass lesions are identified. Attendant [employer] sections are submitted in two cassettes as follows: 1 - one fallopian tube, 2 - the other fallopian tube. / AM:dee 03/26/2023 TC:4 CPT: 94709 x2
[2023-03-25 09:37] LABS: Internal QC Validated? YES +Cl - CLEAR BKGD; Pregnancy, Urine Negative Negative; Record Kit Lot#,Urine Preg 667200
[2023-03-25] MEDS: Lactated Ringers 1,000 ML 15 ML IV (09:52)
[2023-03-25] MEDS: Acetaminophen 500 MG Tablet 1000 MG PO (09:53)
[2023-03-25] MEDS: Ketorolac 30 MG/ML Syringe IV (09:53)
[2023-03-25 09:56] VITALS: BP 130/77; PULSE 79; RESP 18; TEMP 36.4; O2SAT 98; BMI 38.0
[2023-03-25 09:58] LABS: Hematocrit 37.2 % (37-47); Hemoglobin 11.4 g/dL (12.0-15.0); Mean Corp Hgb Conc 30.6 g/dL (32-36); Mean Corpuscular Hgb 26.4 pg (27.0-32.0); Mean Corpuscular Volume 86.1 fL (81-99); Mean Platelet Vol. 10.1 fl (6.2-12.0); Platelet Count 234 K/mm3 (150-450); RBC Distribution Width CV 13.7 % (11.6-14.6); RBC Distribution Width SD 43.4 fl (35.1-43.9); Red Blood Count 4.32 M/mm3 (4.2-5.4)
[2023-03-25 10:11] LABS: AST(SGOT) 19 U/L (15-37); Alanine Aminotransfer ALT/SGPT 35 U/L (13-56); Albumin, Serum 3.4 g/dL (3.2-5.0); Alkaline Phosphatase 80 U/L (45-117); Bilirubin, Direct 0.08 mg/dL (0.00-0.30); Globulin 4.1 g/dL (2.2-4.2); Protein, Total 7.5 g/dL (6.4-8.2)
--- NOTE | 2023-03-25 11:11 | PCM.DC ---
Discharge Instructions Diet Discharge Diet: No restrictions Activity Return to work on:: 03/29/23 May shower in (days): 1 May resume sexual activity in: 1 week Dressing / Incision Call your doctor if your incision/area has: Sudden Increased Bleeding and Foul Smelling Discharge Call your doctor if you observe: Fever of 101 or Higher Cleanse incision/area with: Soap & Water (Your incisions have skin glue and it can get wet. Leave on until it falls off) Follow Up Care Please Follow Up With: Marcie Issa MD When: As needed. Call the office or contact us via [employer] as needed. Test Results: Test results from this visit will be discussed in further detail at your follow-up appointment, if applicable. Discharge Plan Admission Primary Reason for Your Visit: Tubal sterilization Attending Provider: Marcie Issa Primary Care Provider: Macarena Calles Discharge Orders/Prescriptions Prescriptions: New ibuprofen 600 mg tablet 600 mg PO Q6H PRN PRN (Reason: fever or pain) 20 Days Qty: 30 1RF Continued acetaminophen 500 mg Tablet 1,000 mg PO Q6H PRN PRN (Reason: Pain 1-10 Or Fever) Qty: 0 0RF nifedipine 30 mg tablet extended release 24hr 30 mg PO BID Patient Comments: take 1 tablet by mouth twice a day albuterol 90 mcg/actuation aerosol 90 mcg inhalation PRN Discontinued ibuprofen 600 mg Tablet 600 mg PO Q6H PRN PRN (Reason: Pain Score 1-3) Qty: 0 0RF Referrals / Follow Up: Macarena Calles PA-C [Primary Care Provider] - Disposition Disposition (needs filled in before D/C Order can be placed): Home, Self Care
--- NOTE | 2023-03-25 11:12 | PCM.OPRPT ---
Problems Associated Problem List Diagnoses (1) Consultation for sterilization: Report of Operation Date of Procedure: 03/25/23 Pre-Operative Diagnosis: sterilization request Post-Operative Diagnosis: same Surgery/Procedure Performed:: laparoscopic bilateral salpingectomy Description of Surgical Findings:: normal cervix,uterus, tubes and ovaries and peritoneal cavity Surgeon: Marcie Issa natural gas trader: None Type of Anesthesia: General Anesthesiologist: Colton Walton Special Medications: none Specimen's removed: bilateral fallopian tubes Drains: none Estimated Blood Loss (mL): 5 Fluids Replaced: 800 Description of Procedure: The patient was taken to the operating room where she was prepped and draped in the dorsolithotomy position. A weighted speculum was placed in the vagina and the anterior lip of the cervix was grasped with a tenaculum. The Lamar uterine manipulator was placed and the remainder of the instruments were removed from the vagina. Attention was turned to the abdomen. All port sites were infiltrated with 0.5% Marcaine before skin incisions were made. A 5 mm [intraumbilical] incision was made. The anterior abdominal wall was tented up with 2 towel clamps while a 5 mm blade less trocar and sleeve were [directly inserted]. Intraperitoneal placement was confirmed with the laparoscope. The pneumoperitoneum was created and the underlying abdominal contents were intact. The patient was placed in Trendelenburg. Right and left lower quadrant ports were placed under direct visualization lateral to the inferior epigastric vessels. The bowel was swept away and the above findings were noted. The Enseal device was used to clamp seal and transect the antimesenteric portions of the right tube to the cornual insertion of the uterus. The tube was amputated from the uterus and the pedicles were all confirmed to be hemostatic. The same procedure was performed on the contralateral side. The specimens were brought out through a 5 mm port. The pedicles were again examined and found to be hemostatic. The lateral ports were removed under direct visualization and no active bleeding was noted. The pneumoperitoneum was released. The skin incisions were closed with Monocryl suture in a subcuticular fashion and skin glue by me. The vaginal instruments were removed and the vaginal sweep was completed by me. All sponge and needle counts were correct and the patient was taken to the recovery room in stable condition. Grafts/Implants Used: none Procedure Start Time: 11:17 Procedure Stop Time: 11:37 Complications None Admit VTE Documentation VTE Present on Admission: No VTE Mechan Device Prophylaxis: SCD's VTE Pharm Prophylaxis ordered?: No Reason prophylaxis not ordered:: Procedure Not Indicated
[2023-03-25] MEDS: Bupivacaine Mpf 0.5% 30 ML VIAL (11:44)
[2023-03-25 11:54] VITALS: BP 130/77; BP 134/77; PULSE 86; RESP 16; TEMP 36.1; O2SAT 96
[2023-03-25 12:00] VITALS: BP 130/77; BP 134/74; PULSE 93; RESP 16; O2SAT 100
[2023-03-25 12:17] VITALS: BP 120/72; BP 130/77; PULSE 77; RESP 16; TEMP 36.2; O2SAT 96
[2023-03-25 12:57] VITALS: BP 130/77
== END 2023-03-25 13:05 | disposition home or self-care (01) ==
LOC: SDC 09:13 → AC 09:14
PROVIDERS: Anesthesiology; PCP Family Medicine; Referring Provider Obstetrics & Gynecology; Visit Provider Obstetrics & Gynecology
PROC: (CPT 58661; principal; 2023-03-25 11:05)
DX: Z30.2 Encounter for sterilization (principal); I10 Essential (primary) hypertension; J45.909 Unspecified asthma, uncomplicated
CPT/HCPCS: 58661; 00840; 80076; 81025; 85027; 88302; J7120; C1760; J2405